=== PATIENT | male | born 1985 | race Two or more races ===

== ENCOUNTER 2022-11-12 13:07 | Emergency (ER) | payer OTHER ==
[~2022-11-12] VITALS: Ht 165.1 cm; Wt 102.1 kg
== END 2022-11-12 19:48 | disposition home or self-care (01) ==
LOC: ER 13:07
DX: S60.221A Contusion of right hand, initial encounter (principal); X58.XXXA Exposure to other specified factors, initial encounter; Y93.89 Activity, other specified; Y92.89 Other specified places as the place of occurrence of the external cause; Y99.8 Other external cause status; R03.0 Elevated blood-pressure reading, without diagnosis of hypertension

== ENCOUNTER 2022-12-02 08:28 | Emergency (ER) | payer OTHER ==
[~2022-12-02] VITALS: Ht 165.1 cm; Wt 102.1 kg
== END 2022-12-02 09:57 | disposition home or self-care (01) ==
LOC: ER 08:28
DX: I10 Essential (primary) hypertension (principal); G43.909 Migraine, unspecified, not intractable, without status migrainosus

== ENCOUNTER 2023-04-12 01:05 | Emergency (ER) | payer OTHER ==
[~2023-04-12] VITALS: Ht 165.1 cm; Wt 104.3 kg
[2023-04-12] MEDS ORDERED: LIPITOR20 MG PO (01:17)
[2023-04-12] MEDS ORDERED: TOPROL XL25 M1 (01:17)
== END 2023-04-12 05:27 | disposition home or self-care (01) ==
LOC: ER 01:05
DX: R07.89 Other chest pain (principal); F41.9 Anxiety disorder, unspecified; I10 Essential (primary) hypertension